=== PATIENT | female | born 1955 | race Two or more races ===

== ENCOUNTER 2021-09-23 06:24 | Day surgery (SDC) | payer OTHER ==
[~2021-09-23 06:24] MED LIST: COLLAGEN PLUS1 EACH PO; FENOFIBRATE145 MG PO; GABAPENTIN300 M2 PO; JANUMET XR 50-1 EAC1 PO; MILLIPRED5 MG PO; PROGRAFT PO; ZESTRIL10 M1 PO
== END 2021-09-23 12:50 | disposition home or self-care (01) ==
LOC: CIR.AMB 06:24
PROVIDERS: ATTEND Obstetrics & Gynecology
DX: N84.0 Polyp of corpus uteri (principal); N72 Inflammatory disease of cervix uteri; N71.1 Chronic inflammatory disease of uterus; N88.8 Other specified noninflammatory disorders of cervix uteri; I10 Essential (primary) hypertension; E78.5 Hyperlipidemia, unspecified; G62.9 Polyneuropathy, unspecified; Z85.05 Personal history of malignant neoplasm of liver; Z94.4 Liver transplant status; K29.70 Gastritis, unspecified, without bleeding